=== PATIENT | male | born 1960 | race Caucasian/White ===

== ENCOUNTER 2020-09-25 09:48 | Emergency (ER) | payer SELFPAY ==
[2020-09-25 09:54] VITALS: BP 147/88; PULSE 89; RESP 20; TEMP 37.1; O2SAT 100
[2020-09-25 11:19] LABS: Basophils Absolute Auto 0.1 K/mm3 (0.0-0.1); Basophils Percent Auto 0.7 % (0.2-1.2); Eosinophils Absolute Auto 0.3 K/mm3 (0-0.3); Eosinophils Percent Auto 3.2 % (0-4.4); Hematocrit 49.1 % (42.0-52.0); Hemoglobin 16.5 g/dL (14.0-18.0); Immature Granulocyte Absolute 0.21 K/mm3 (0.00-0.031); Lymphocytes Absolute Auto 2.49 K/mm3 (0.9-3.2); Lymphocytes Percent Auto 23.8 % (18.3-44.2); Mean Corpuscular HGB Conc 33.6 g/dl (32-36); Mean Corpuscular Hemoglobin 30.4 pg (26-34); Mean Corpuscular Volume 90.4 fl (80-100); Mean Platelet Volume 9.9 fl (7.4-10.4); Monocytes Percent Auto 9.4 % (2.6-8.5); Neutrophils Absolute Auto 6.4 K/mm3 (1.3-6.7); Neutrophils Percent Auto 60.9 % (45.5-73.1); Platelet Count Result 179 k/mm3 (150-375); Red Blood Count 5.43 M/mm3 (4.6-6.20); Red Cell Distribution Width 13.4 % (11.5-14.5); White Blood Count 10.5 K/mm3 (4.5-10.0)
[2020-09-25 11:31] LABS: Anion Gap 5 mmol/L (8-16); Blood Urea Nitrogen 31 mg/dL (9-20); Carbon Dioxide 30 mmol/L (22-30); Chloride 103 mmol/L (98-107); Estimated CRCL calculation 88 ml/min; Estimated Glomerular Filt Rate > 60; Glucose 124 mg/dL (75-110); Potassium 4.1 mmol/L (3.4-5.0); Sodium 138 mmol/L (137-145)
--- NOTE | 2020-09-25 12:28 | ED.GENADULT ---
HPI - General Adult General Chief complaint: Skin/Abscess/Foreign Body Stated complaint: rash Time Seen by Provider: 09/25/20 10:08 Source: patient Mode of arrival: ambulatory Limitations: no limitations History of Present Illness HPI narrative: Patient is a 60-year-old male who presents to emergency department for evaluation of rash to the bilateral forearms with itching of the arms and the upper back patient notes he was working in the yard thinks he may have had exposure to poison davian or similar plant patient notes similar occurrence in the past does not take anything for his symptoms presents in no distress has not been seen for this Related Data Allergies Allergy/AdvReac Type Severity Reaction Status Date / Time No Known Allergies Allergy Verified 09/25/20 09:58 Review of Systems Review of Systems: All systems reviewed & are unremarkable except as noted in HPI and below PMFSH Social History Social History (Updated 09/25/20 @ 12:29 by Cruz Reyes PA-C) Smoking status: Never smoker Gender identity (if verbalized by the patient): Male Exam Narrative: Exam Narrative: GENERAL: Well-appearing, well-nourished, and in no acute distress. HEAD: Normocephalic, atraumatic. EYES: PERRLA and EOMI. ENT: Nares clear, no rhinorrhea or epistaxis. Mucous membranes moist. CHEST: Clear to auscultation. No respiratory distress. No wheezes rales or rhonchi HEART: Regular rate and rhythm. No murmur heard. Normal peripheral pulses. ABDOMEN: Soft, nontender, nondistended, normal active bowel sounds. EXTREMITIES: Normal range of motion. No edema. SKIN: Warm, dry, no rash. Patient with healing rash of the dorsal surface of the bilateral arms that appears to be healing there is no erythema no blistering no lymphangitic streaking NEURO: No focal deficits. Alert and oriented x3. Neurovascularly intact PSYCH: Normal mood and affect. Course Course Emergency Course: Patient in the room no distress will be sent home with primary care follow-up will be treated symptomatically felt appropriate for outpatient reevaluation of his rash Vital Signs Vital signs: Vital Signs Temperature 98.7 F 09/25/20 09:54 Pulse Rate 89 09/25/20 09:54 Respiratory Rate 20 09/25/20 09:54 Blood Pressure 147/88 H 09/25/20 09:54 Pulse Oximetry 100 09/25/20 09:54 Temperature 98.7 F 09/25/20 09:54 Pulse Rate 89 09/25/20 09:54 Respiratory Rate 20 09/25/20 09:54 Blood Pressure 147/88 H 09/25/20 09:54 Pulse Oximetry 100 09/25/20 09:54 Medical Decision Making MDM Narrative Medical decision making narrative: Patient in the room no distress aware of case findings treatment plan diagnosis agreeing to follow-up as instructed Vital Signs Vital Signs: Vital Signs Temperature 98.7 F 09/25/20 09:54 Pulse Rate 89 09/25/20 09:54 Respiratory Rate 20 09/25/20 09:54 Blood Pressure 147/88 H 09/25/20 09:54 Pulse Oximetry 100 09/25/20 09:54 Temperature 98.7 F 09/25/20 09:54 Pulse Rate 89 09/25/20 09:54 Respiratory Rate 20 09/25/20 09:54 Blood Pressure 147/88 H 09/25/20 09:54 Pulse Oximetry 100 09/25/20 09:54 Lab Data Result diagrams: 09/25/20 11:11 09/25/20 11:11 Labs: Lab Results 09/25/20 09/25/20 Range/Units 11:11 11:11 WBC 10.5 H (4.5-10.0) K/mm3 RBC 5.43 (4.6-6.20) M/mm3 Hgb 16.5 (14.0-18.0) g/dL Hct 49.1 (42.0-52.0) % MCV 90.4 (80-100) fl MCH 30.4 (26-34) pg MCHC 33.6 (32-36) g/dl RDW 13.4 (11.5-14.5) % Plt Count 179 (150-375) k/mm3 MPV 9.9 (7.4-10.4) fl Immature Gran % (Auto) 2.0 H (0-0.5) % Neut % (Auto) 60.9 (45.5-73.1) % Lymph % (Auto) 23.8 (18.3-44.2) % [place] % (Auto) 9.4 H (2.6-8.5) % Eos % (Auto) 3.2 (0-4.4) % Baso % (Auto) 0.7 (0.2-1.2) % Lymph # (Auto) 2.49 (0.9-3.2) K/mm3 [place] # (Auto) 1.0 H (0.1-0.6) K/mm3 Eos # (Auto) 0.3 (0-0.3) K/mm3 Baso # (Auto) 0.1 (0.0-0.
[2020-09-25 12:48] VITALS: BP 142/88; PULSE 72; RESP 20; O2SAT 99
== END 2020-09-25 12:50 | disposition home or self-care (01) ==
PROVIDERS: Emergency Medicine Emergency Medical Services; Emergency Provider Emergency Medicine
DX: R21 Rash and other nonspecific skin eruption (principal)
CPT/HCPCS: 36415; 80048; 85025; 99283

== ENCOUNTER 2021-06-01 06:18 | Emergency (ER) | payer MEDICAID, SELFPAY ==
[2021-06-01 06:27] VITALS: BP 139/90; PULSE 91; RESP 14; TEMP 36.4; O2SAT 100
--- NOTE | 2021-06-01 08:01 | ED.SKABFB ---
HPI - Skin/Abscess/Foreign Bdy History of Present Illness HPI narrative: 61 yo male presents to the ED with chief complaint of rash. Pruritic rash for the past few days. Primarily to the hands and arms. Started after pulling rajiv from a tree, which he was later told was poison tara. He has been using multiple OTC treatments without relief. Related Data Allergies Allergy/AdvReac Type Severity Reaction Status Date / Time No Known Allergies Allergy Verified 06/01/21 06:30 Review of Systems Review of Systems: All systems reviewed & are unremarkable except as noted in HPI and below Constitutional: Constitutional: Denies fever(s) Eyes: Eyes: Reports no additional eye complaints PMFSH Social History Social History Smoking status: Never smoker Gender identity (if verbalized by the patient): Male Exam Const: General: healthy appearing, no acute distress and alert Orientation/consciousness: patient oriented x3 HENMT: Head: normal to inspection Neck: Neck: normal visual inspection and no lymphadenopathy Resp: Effort & Inspection: normal respiratory effort Auscultation: clear to auscultation bilaterally, no rales, no rhonchi and no wheezes Cardio: Jugular venous distension: no JVD Rate: regular rate Rhythm: regular rhythm Heart sounds: no murmurs GI: GI Palp: Yes Soft to palpation and No Tenderness to palpation present (GI) Skin: Other: Papular rash with scattered vesicles and extensive excoriation to the BUE. Tender mildly erythematous areas to the palms, likely deep vesicle. Neuro: General: patient oriented x3 and moves all extremities Speech: normal speech Extrem: General: no edema Psych: Appearance: well kempt Affect: normal affect Course Vital Signs Vital signs: Vital Signs Temperature 36.4 C 06/01/21 06:27 Pulse Rate 91 06/01/21 06:27 Respiratory Rate 14 06/01/21 06:27 Blood Pressure 139/90 06/01/21 06:27 Pulse Oximetry 100 06/01/21 06:27 Temperature 36.4 C 06/01/21 06:27 Pulse Rate 80 06/01/21 08:32 Respiratory Rate 16 06/01/21 08:32 Blood Pressure 136/100 H 06/01/21 08:32 Pulse Oximetry 97 06/01/21 08:32 MDM - Skin/Abscess/Foreign Bdy MDM Narrative Medical decision making narrative: Exam and history point to poison Tara. Given rather large area and numerous open areas of open skin I will treat with oral prednisone. Medical Records Attestation: I reviewed the patient's medical records. Discharge Plan Discharge Clinical Impression: Poison tara dermatitis Patient Disposition: Home, Self-Care Condition: Stable Instructions: Poison Tara (ED) Prescriptions: New prednisone 10 mg Tablet See Taper mg PO DAILY 15 Days Qty: 45 RF: 0 Follow-up/Referrals: Joselo Burrell MD [Physician] - PHYSICIAN,[employer] [Primary Care Provider] -
[2021-06-01] MEDS: DEXAMETHASONE SOD PHOS INJ 4 MG/ML VIAL 10 MG IM (08:18)
[2021-06-01 08:32] VITALS: BP 136/100; PULSE 80; RESP 16; O2SAT 97
== END 2021-06-01 08:33 | disposition home or self-care (01) ==
PROVIDERS: Emergency Provider Emergency Medicine
DX: L23.7 Allergic contact dermatitis due to plants, except food (principal)
CPT/HCPCS: 96372; 99283; J1100